=== PATIENT | female | born 1970 | race Caucasian/White ===

== ENCOUNTER 2021-03-18 08:28 | Day surgery (SDC) | payer OTHER ==
[~2021-03-18] VITALS: Ht 162.6 cm; Wt 73.9 kg
[2021-03-18] MEDS ORDERED: SYNTHROID0.112 MG/T PO (09:14)
[2021-03-18 09:36] VITALS: BP 118/86; PULSE 84; TEMP 97.3
[2021-03-18 10:56] VITALS: BP 114/78; PULSE 73
[2021-03-18 11:00] VITALS: BP 111/80; PULSE 70
[2021-03-18 11:15] VITALS: BP 113/78; PULSE 65
[2021-03-18 11:30] VITALS: BP 118/77; PULSE 65
[2021-03-18 11:45] VITALS: BP 119/92; PULSE 59
--- NOTE | 2021-03-18 12:08 | NUR ---
1056 Pt returns from endo procedure via cart and RN assist to [facility] [place] [facility]. Pt ambulates from cart to recliner with RN assist. Monitors on and alarms set. Call light within reach. Report received from DALTON Dee. Pt alert and oriented. Pt requests food and drink. Pt denies any pain or nausea. 1110 Pt taking food and drink well. No complications noted. 1203 Discharge instructions given to pt. All questions answered to her satisfaction. Handed to pt are a thank you card and discharge information. 1208 Pt transferred out of the hospital via wheelchair and this RN assist, to private vehicle driven by son.
== END 2021-03-18 12:08 | disposition home or self-care (01) ==
LOC: SDCO 08:28
DX: K90.0 Celiac disease (principal); K44.9 Diaphragmatic hernia without obstruction or gangrene; K63.4 Enteroptosis; R19.7 Diarrhea, unspecified; K31.89 Other diseases of stomach and duodenum; E03.9 Hypothyroidism, unspecified; M19.90 Unspecified osteoarthritis, unspecified site; G47.9 Sleep disorder, unspecified; Z90.49 Acquired absence of other specified parts of digestive tract; Z79.890 Hormone replacement therapy; Z98.51 Tubal ligation status; Z90.89 Acquired absence of other organs; Z82.3 Family history of stroke
CPT/HCPCS: J2704; J7120